=== PATIENT | female | born 1950 | race Caucasian/White ===

== ENCOUNTER 2018-08-05 06:39 | Day surgery (SDC) | payer MEDICARE, BC ==
[2018-08-02 09:40] VITALS: BMI 32.7
[~2018-08-05 06:39] MED LIST: ALPRAZolam 0.25 MG TAB PO PRN; ALPRAZolam 0.5 MG TAB PO PRN; NITROGLYCERIN SL TABS 0.4 MG TAB SUBLINGUAL PRN; SODIUM CHLORIDE 0.9% 1,000 ML in EMPTY BAG 1 BAG IV ONE
[2018-08-05] MEDS ORDERED: ASPIRIN 325 MG TAB PO ONE (07:00)
[2018-08-05] MEDS ORDERED: ATORVASTATIN 80 MG TAB PO ONE (07:00)
[2018-08-05] MEDS ORDERED: LIDOCAINE 1% INJ 10MG/ML (20 ML MDV) ONE (07:09)
[2018-08-05] MEDS ORDERED: VERAPAMIL 2.5 MG/ML 2 ML AMP ONE (07:09)
[2018-08-05] MEDS ORDERED: MIDAZOLAM 2 MG/2 ML VIAL ONE (07:09)
[2018-08-05] MEDS ORDERED: diphenhydrAMINE 50 MG/ML 1 ML VIAL ONE (07:10)
[2018-08-05] MEDS ORDERED: HEPARIN SODIUM 1,000 UN/ML (10ML VL) ONE (07:10)
[2018-08-05 07:23] VITALS: RESP 16; TEMP 98.3
[2018-08-05] MEDS ORDERED: ONDANSETRON 4 MG/2 ML VIAL ONE (07:31)
[2018-08-05] MEDS ORDERED: diphenhydrAMINE 50 MG/ML 1 ML VIAL IVP ONE (07:47)
[2018-08-05] MEDS ORDERED: MIDAZOLAM 2 MG/2 ML VIAL IVP ONE (07:47)
[2018-08-05] MEDS ORDERED: LIDOCAINE 1% INJ 10MG/ML (20 ML MDV) SQ ONE (07:53)
[2018-08-05] MEDS ORDERED: VERAPAMIL SYRINGE (5 MG/10 ML) INTRAARTER ONE ×2 (07:54→08:09)
[2018-08-05] MEDS ORDERED: HEPARIN SODIUM 1,000 UN/ML (10ML VL) IV ONE (07:55)
[2018-08-05] MEDS ORDERED: IOPAMIDOL-370 100ML BTL INJ ONE (08:09)
[2018-08-05] MEDS ORDERED: RX INFO: IV CONTRAST WAS GIVEN 1 EACH MISC MISCELLANE PRN (08:27)
[2018-08-05] MEDS ORDERED: SODIUM CHLORIDE 0.9% 1,000 ML IV SCH (08:30)
[2018-08-05] MEDS ORDERED: METOPROLOL TARTRATE 50 MG TAB ONE (08:54)
[2018-08-05] MEDS ORDERED: METOPROLOL TARTRATE 25 MG TAB PO SCH (09:00)
--- NOTE | 2018-08-05 09:05 | CC ---
CARDIAC CATHETERIZATION REPORT DATE OF SERVICE: 08/05/2018 PROCEDURE: Left heart catheterization, coronary angiography. PERFORMED BY: Dr. Hermann Madison. Moderate conscious sedation time was 20 minutes. Patient was given Versed and Benadryl. Oxygen saturation, hemodynamics and EKG were monitored closely. CLINICAL INFORMATION: Mrs. Kristen Gandara is a 68-year-old lady with a recent onset of exercise intolerance with chest pressure and shortness of breath with activity. Stress test was equivocal, but she walked for only 3 minutes. Given her somewhat inconclusive stress test with poor exercise capacity and continued symptoms, I recommended coronary angiography. Risks, benefits, options, rationale were explained. PROCEDURE NOTE: Under local anesthesia and strict aseptic precautions, a 6-Chinese introducer was placed in the right radial artery. Using a 3.5 left and a 4.0 right Oliva catheters I performed coronary angiography and a pigtail catheter was used to check LV pressures. LV gram was not performed. The catheter and sheath was taken out and TR band applied as per protocol and oxygen saturation of the fingers was good. The patient tolerated procedure well without complications and results were discussed with the patient and family and she was sent to the room in a stable condition. CARDIAC CATHETERIZATION FINDINGS: The left ventricular end-diastolic pressure was 10 to 12 mmHg without any gradient across the aortic valve. CORONARY ANGIOGRAPHY FINDINGS: RIGHT CORONARY ARTERY: Technically a large dominant vessel has no significant disease supplies a sizable amount of myocardium and distally bifurcates into a larger PLV, smaller PDA both of which are free of significant disease. There is no significant disease involving the dominant right coronary artery. LEFT MAIN CORONARY ARTERY: This is a short patent disease-free vessel that bifurcates into LAD and circumflex. Left main itself is free of significant disease. LEFT ANTERIOR DESCENDING CORONARY ARTERY: Good caliber vessel extends along the anterior wall, gives off a very high first diagonal branch and then 2 smaller septal branches and a smaller diagonal branch. Distally, it bifurcates at the apex to 2 smaller branches and supplies a sizable amount of myocardium. No significant disease in the large distribution LAD system. LEFT POSTERIOR CIRCUMFLEX CORONARY ARTERY: A small nondominant vessel gives off a single obtuse marginal that runs laterally in a small groove branch. No significant disease only minor irregularities. The obtuse marginal is of fair caliber and distribution. LEFT VENTRICULOGRAM: This was not performed. FINAL IMPRESSION: This patient has no significant obstructive coronary artery disease, right dominant system, normal filling pressures. RECOMMENDATION: Findings were discussed with the patient. Continued risk factor modification is advised. I will request Dr. Anitha Lazar from Pulmonary to see the patient to evaluate for any pulmonary etiology for her exercise intolerance. We will continue the exercise program. JENNIFER / HUY: [id number] /
[2018-08-05 13:42] LABS: Basophils % (A) 0 %; Eosinophils % (A) 0 %; HCT 38.2 % (34.0-46.0); Lymphocytes # (A) 1.3 k/uL (1.0-4.8); Lymphocytes % (A) 29 %; MCH 30.8 pg (25.0-35.0); MCV 90.6 fL (80.0-100.0); Mean Platelet Volume 7.9; Monocytes # (A) 0.2 k/uL (0-1.0); Monocytes % (A) 5 %; Neutrophils # (A) 2.8 k/uL (1.3-7.7); Neutrophils % (A) 63 %; Platelet Count 218 k/uL (150-450); RBC 4.22 m/uL (3.80-5.40); RDW 12.6 % (11.5-15.5); WBC 4.5 k/uL (3.8-10.6)
--- NOTE | 2018-08-05 14:06 | P.CNPUL ---
History of Present Illness Consult date: 08/05/18 Reason for consult: dyspnea Chief complaint: shortness of breath History of present illness: This is a 68-year-old female who presented to the hospital for elective left heart catheterization. The patient has been complaining of feeling lightheaded and shortness of breath for several months. The patient is complaining of some chest tightness as well. She states when she exerts herself especially at the grocery store it seems worse. She does follow with Dr. Teresa Madison for thyroid issues. She states her thyroid was checked and was normal. She also follows with Dr. DAKOTA Madison and underwent left heart cath today which was essentially normal. The patient did apparently failed a treadmill stress test due to shortness of breath. She states that she takes "strolling walks" a few times a day for about 10 minutes. She usually has to sit down and rest afterward. She denies a history of asthma or COPD. She does have a history of seasonal ALLERGIES but was never ALLERGY tested. She used to take Claritin-D and now takes Singulair. 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 She states is secondary to thyroid surgery. She denies any wheezing or noisy breathing. She does snore at night and has never been tested for obstructive sleep apnea. She does note that she will usually wake up feeling rested. She's never had a pulmonary function test. She's never been on any inhalers or nebulizers. She has 1 cat in the home he does note that her home is very [place]. She states in college she did smoke socially for a few months but has not smoked since. She was exposed to secondhand smoke via her father and . 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 Review of Systems All systems: negative Past Medical History Past Medical History: Hyperlipidemia, Hypertension, Osteoarthritis (OA), Thyroid Disorder Additional Past Medical History / Comment(s): recent episodes of dizziness & occasional SOB, seasonal allergies, alopecia, paralyzed left vocal cord & has had episodes of laryngospasm when vocal cord is "stressed"-sometimes induced by coughing, hypoglycemia, migraines History of Any Multi-Drug Resistant Organisms: None Reported Past Surgical History: Cholecystectomy, Orthopedic Surgery, Tonsillectomy Additional Past Surgical History / Comment(s): thyroidectomy x2, left rotator cuff repair Past Anesthesia/Blood Transfusion Reactions: Previous Problems w/ Anesthesia, Postoperative Nausea & Vomiting (PONV) Additional Past Anesthesia/Blood Transfusion Reaction / Comment(s): slow to wake up Smoking Status: Never smoker - Past Family History Mother Family Medical History: No Reported History Medications and Allergies Home Medications Medication Instructions Recorded Confirmed Type Ascorbic Acid [Vitamin C] 250 mg PO DAILY 08/02/18 08/05/18 History Aspirin 81 mg PO DAILY 08/02/18 08/05/18 History Atorvastatin [Lipitor] 10 mg PO HS 08/02/18 08/05/18 History Biotin 5 mg PO HS 08/02/18 08/05/18 History Cholecalciferol [Vitamin D3] 5,000 unit PO DAILY 08/02/18 08/05/18 History Cyanocobalamin [Vitamin B-12] 500 mcg PO DAILY 08/02/18 08/05/18 History Ferrous Sulfate [Feosol] 325 mg PO HS 08/02/18 08/05/18 History Levothyroxine Sodium [Levoxyl] 88 mcg PO DAILY 08/02/18 08/05/18 History Liothyronine Sodium [Cytomel] 10 mcg PO BID 08/02/18 08/05/18 History Loratadine [Claritin] 10 mg PO DAILY PRN 08/02/18 08/05/18 History Magnesium 500 mg PO HS 08/02/18 08/05/18 History Montelukast [Singulair] 10 mg PO DAILY 08/02/18 08/05/18 History [place]-3 Acid Ethyl Esters [Lovaza] 2 gm PO DAILY 08/02/18 08/05/18 History Telmisartan [Micardis] 40 mg PO DAILY 08/02/18 08/05/18 History Ubidecarenone [Co Q-10] 200 mg PO DAILY 08/02/18 08/05/18 History Metoprolol Tartrate [Lopressor] 25 mg PO DAILY 08/05/18 08/05/18 History Allergies Allergy/AdvReac Type Severity Reaction Status Date / Time codeine Allergy Rash/Hives Verified 08/01/18 17:20 Sulfa (Sulfonamide Allergy Rash/Hives Verified 08/01/18 17:20 Antibiotics) Penicillins AdvReac Nausea & Verified 08/01/18 17:21 Vomiting Physical Exam Osteopathic Statement: *. No significant issues noted on an osteopathic structural exam other than those noted in the History and Physical/Consult. Vitals: Vital Signs Temp Pulse Pulse Resp BP Pulse Ox 08/05/18 09:25 60 16 142/62 96 08/05/18 09:20 64 16 146/67 97 08/05/18 08:57 64 16 145/67 97 08/05/18 08:42 61 16 137/65 96 08/05/18 08:25 66 16 164/64 98 08/05/18 07:20 98.3 F 76 16 154/74 98 Intake and Output 08/04/18 08/05/18 08/05/18 22:59 06:59 14:59 Intake Total 150 Balance 150 Intake: IV 150 Sodium Chloride 0.9% 1, 0 000 ml @ 100 mls/hr IV . Q10H ANA Rx#:[id number] Other: Weight 96 kg Gen.: Patient is alert and oriented 3, no acute distress, overweight Cardiovascular: Regular rate and rhythm, S1/S2 Lungs: Clear to auscultation bilaterally no wheezes rales or rhonchi Abdomen: Soft nontender nondistended positive bowel sounds Extremities: No edema Results - Laboratory Findings CBC and BMP: 08/05/18 13:30 Assessment and Plan Assessment: Dyspnea on exertion of unclear etiology Suspect underlying asthma History of seasonal and environmental ALLERGIES Dyslipidemia Obesity Suspect underlying obstructive sleep apnea Hypertension O2 saturation 97% on room air Will check HP panel, IgE, RAST panel Patient will be scheduled for pulmonary function test as outpatient Patient will also be scheduled for a sleep study outpatient Continue Singulair Allergen avoidance Encourage ambulation and exercise, weight loss Will follow up with patient in the office in 1 week Thank you for this consultation. We will continue to follow along.
[2018-08-05 14:07] LABS: ALT 31 U/L (9-52); AST 16 U/L (14-36); Albumin 3.6 g/dL (3.5-5.0); Alkaline Phosphatase 111 U/L (38-126); Anion Gap 7 mmol/L; Blood Urea Nitrogen 16 mg/dL (7-17); Calcium 8.9 mg/dL (8.4-10.2); Carbon Dioxide 28 mmol/L (22-30); Chloride 107 mmol/L (98-107); Glucose 100 mg/dL (74-99); Potassium 4.2 mmol/L (3.5-5.1); Sodium 142 mmol/L (137-145); Total Bilirubin 0.4 mg/dL (0.2-1.3); Total Protein 6.3 g/dL (6.3-8.2)
[2018-08-05 16:07] VITALS: BP 124/65; PULSE 61
[2018-08-06 15:02] LABS: Alt. alternata IgE Class CLASS 0; Alternaria alternata IgE <0.35 kU/L (<0.35); Asperg. fumagatus IgE <0.35 kU/L (<0.35); Asperg. fumagatus IgE Class CLASS 0; Bermuda Grass IgE <0.35 kU/L (<0.35); Birch(Com.Silvr) IgE <0.35 kU/L (<0.35); Birch(Com.Silvr) IgE Class CLASS 0; Cat Epith & Dander IgE <0.35 kU/L (<0.35); Cat Epith & Dander IgE Class CLASS 0; Clad herbarum IgE <0.35 kU/L (<0.35); Cockroach IgE <0.35 kU/L (<0.35); Cottonwood IgE <0.35 kU/L (<0.35); Dermato. Pteronyssinus IgE <0.35 kU/L (<0.35); Dermato. farinae IgE <0.35 kU/L (<0.35); Dermato. farinae IgE Class CLASS 0; Dog Dander IgE <0.35 kU/L (<0.35); Elm IgE <0.35 kU/L (<0.35); Maple (Box Elder) IgE <0.35 kU/L (<0.35); Maple (Box Elder) IgE Class CLASS 0; Mountain Cedar IgE <0.35 kU/L (<0.35); Mountain Cedar IgE Class CLASS 0; Mouse Urine IgE Class CLASS 0; Nettle IgE <0.35 kU/L (<0.35); Nettle IgE Class CLASS 0; Oak IgE <0.35 kU/L (<0.35); Penicillium notatum IgE Class CLASS 0; Rough Marshelder IgE <0.35 kU/L (<0.35); Rough Marshelder IgE Class CLASS 0; Timothy Grass IgE <0.35 kU/L (<0.35); White Ash IgE Class CLASS 0
[2018-08-09 16:37] LABS: Alternaria Alternata IgG 10.2 mcg/mL (< 13.6); Aspergillus fumigatus IgG Not detected (Not detected); Aureobasidium pullulans IgG 4.8 mcg/mL (< 13.6); Cladosporium herbarium IgG 9.3 mcg/mL (< 14.7); Phoma ssp. IgG 10.1 mcg/mL (< 6.6); Saccaharomospora viridis Not detected (Not detected); Saccaharopoly. rectivirgula Not detected (Not detected)
== END 2018-08-05 16:08 | disposition home or self-care (01) ==
LOC: CATHCVL 06:39
PROVIDERS: ATTEND Internal Medicine Interventional Cardiology
DX: I20.0 Unstable angina (principal); I10 Essential (primary) hypertension; E78.00 Pure hypercholesterolemia, unspecified; E78.5 Hyperlipidemia, unspecified; Z85.850 Personal history of malignant neoplasm of thyroid; M19.90 Unspecified osteoarthritis, unspecified site; E07.9 Disorder of thyroid, unspecified; E66.9 Obesity, unspecified; Z68.32 Body mass index [BMI] 32.0-32.9, adult; Z79.82 Long term (current) use of aspirin; Z79.890 Hormone replacement therapy; Z79.899 Other long term (current) drug therapy; Z88.5 Allergy status to narcotic agent; Z88.0 Allergy status to penicillin; Z88.2 Allergy status to sulfonamides
CPT/HCPCS: 93458; 82785; 86003; 80053; 86001; 85025; 86609; 86606; C1894; J2250; J1200; J2001; J1644; Q9967; 93454